=== PATIENT | male | born 1965 | race Caucasian/White ===

== ENCOUNTER → 2017-04-25 | Outpatient (CLI) | payer BC | LOC: C.PATHSPEC 10:37 | PROVIDERS: ATTEND Nurse Practitioner Adult Health | DX: N39.0 Urinary tract infection, site not specified (principal); R31.0 Gross hematuria ==

== ENCOUNTER → 2017-05-03 | Outpatient (CLI) | payer BC ==
[~2017-05-03] MED LIST: OPTIRAY 320 IV PRN
--- NOTE | 2017-05-03 08:50 | DIAGNOSTIC IMAGING REPORT ---
ABD/PELVIS COMBO HISTORY: 52 years-old Male R31.0 Gross hematuriavaild 04/2017-06/24/17 E X0D E [id number] acute gross hematuria with urinary tract infection COMPARISON: Renal ultrasound 04/21/2017 TECHNIQUE: Multiple axial CT images of the abdomen and pelvis were obtained both with and without the use of 119 mL Optiray 320 utilizing hematuria protocol. A dose lowering technique was used consistent with the principals of AMAYA. FINDINGS: Exam is limited secondary to beam hardening artifact from large patient body habitus. There within the right ventricle is noted, likely from IV access. Lung bases are generally clear. No pneumoperitoneum or pneumatosis. Nonspecific right epicardial lymph nodes are seen measuring up to 7 mm. The liver, gallbladder, spleen, pancreas, and adrenal glands are unremarkable. The noncontrast scan demonstrates no renal or ureteral calculi. Central parenchymal calcifications of the prostate are noted. Urinary bladder is only partially distended and demonstrates mild wall thickening with apparent perivesicular stranding. No focal filling defects within either collecting system or ureter. There is mild dilation of the mid right ureter, likely physiologic. There are portions of the distal ureters which are not well opacified, right greater than left which mildly limits evaluation. Abdominal aorta is normal in course and caliber. No bulky adenopathy. There is no bowel obstruction or focal bowel wall thickening. Minimal colonic diverticulosis without diverticulitis. The appendix is not definitively visualized. No secondary signs of acute appendicitis. No acute abnormality of the soft tissues. Nonspecific mildly enlarged inguinal lymph nodes are seen measuring up to 9 mm on the right and 12 mm on the left. Mild multilevel endplate spurring and facet arthropathy of the spine. IMPRESSION: 1. No renal or ureteral calculi. No hydronephrosis. 2. Mild wall thickening of the urinary bladder with perivesicular stranding suggests possible cystitis. Correlate with urinalysis. 3. Mildly enlarged bilateral inguinal lymph nodes are nonspecific and may be physiologic. The above report was generated using voice recognition software. It may contain grammatical, syntax or spelling errors. Electronically signed by: Alfei Falcon M.D. 05/03/2017 8:48 AM Dictated Date/Time: 05/03/2017 8:04 AM
== END | disposition home or self-care (01) ==
LOC: C.CTS 07:09
PROVIDERS: ATTEND Nurse Practitioner Adult Health
DX: R31.0 Gross hematuria (principal)